=== PATIENT | male | born 1940 | race Caucasian/White ===

== ENCOUNTER → 2017-06-28 | Outpatient (CLI) | payer MEDICARE, OTHER ==
[~2017-06-28] MED LIST: ASPI-231 PO; COLC0.6T56 OR; LOSA100T21 PO; PRAV20TA3 PO
== END | disposition home or self-care (01) ==
LOC: LAB 10:30
PROVIDERS: ATTEND Podiatrist Foot & Ankle Surgery
DX: L57.0 Actinic keratosis (principal)

== ENCOUNTER → 2018-07-17 | Day surgery (SDC) | payer MEDICARE, OTHER ==
[2018-07-16 12:09] LABS: Urine Bacteria NONE SEEN /hpf (None Seen); Urine Blood Negative /uL (Negative); Urine Specific Gravity 1.017 (1.001-1.035); Urine WBC 1 /hpf (0 - 3)
[2018-07-16 12:20] LABS: Eosinophils # (auto) 0.1 uL; Hemoglobin 15.6 g/dL (13.5-17.5); Monocytes # (auto) 0.8 uL; White Blood Cell 6.8 10^3/uL (4.4-10.8)
[2018-07-16 12:22] LABS: Basophils # (auto) 0 uL; Basophils % (auto) 0.4 % (0.0-2.0); Eosinophils % (auto) 1.8 % (0.0-7.0); Hematocrit 45.9 % (41.0-53.0); Lymphocytes # (auto) 1.5 uL; Lymphocytes % (auto) 21.4 % (10.0-50.0); Mean Corpuscular Hemoglobin 34.3 pg (28.0-32.0); Mean Corpuscular Volume 100.9 fL (80.0-100.0); Monocytes % (auto) 12.5 % (0.0-12.0); Neutrophils # (auto) 4.3 uL; Neutrophils % (auto) 63.9 % (37.0-80.0); Nucleated Red Blood Cells % 0.1 %; Platelet Count (auto) 253 10^3/uL (140-450); Red Blood Cells 4.55 10^6/uL (4.5-5.90); Red Cell Distribution Width 11.8 % (11.8-14.3)
[2018-07-16 12:28] LABS: INR 0.95 (0.9-1.15); Partial Thromboplastin Time 26.1 sec (23.78-33.04); Prothrombin Time 10.2 sec (9.27-12.13)
[2018-07-16 12:39] LABS: Calcium 9.4 mg/dL (8.5-10.1)
[2018-07-16 12:44] LABS: BUN/Creatinine Ratio 14.6; Bilirubin, Total 0.8 mg/dL (0.2-1.0); Total Protein 7.5 g/dL (6.4-8.2)
[~2018-07-17] VITALS: Ht 177.8 cm; Wt 84.8 kg
[~2018-07-17] MED LIST changes: +ASCO100076 PO; +B-CO1TAB8 PO; +BUPIVACAINE 0.75% INJ 10ML MPV SDV IJ ONE; +CHOL200021 PO; +CLINDAMYCIN 600MG IV 50 ML IV ONE; +COEN150C4 PO; +GLYCOPYRROLATE 0.2 MG/ML 1ML VIAL ONE; +HYDROmorphone HCL 2 MG/ML VL IV PRN; +LIDOCAINE 1% INJ PF 5ML AMP ONE; +LIDOCAINE W/ EPINEPHRINE 1 % INJ 30ML ONE; +METOCLOPRAMIDE HCL 5MG/ml INJ 2ml VIAL ONE; +MIDAZOLAM HCL 1MG/1ML-2 ML VIAL ONE; +NALOXONE HCL 0.4 MG/ML VIAL IV PRN; +OMEG100078 PO; +ONDANSETRON HCL 4 MG/2 ML VIAL IV ONE; +PROPOFOL 10 MG/ML 20 ML IV ONE; +diphenhdrAMINE HCL 50 MG/1 ML VL ONE
[2018-07-17 14:00] VITALS: BP 109/77
== END | disposition home or self-care (01) ==
LOC: SUR 10:02
PROVIDERS: ATTEND Podiatrist Foot & Ankle Surgery
DX: B07.0 Plantar wart (principal); I10 Essential (primary) hypertension; M19.90 Unspecified osteoarthritis, unspecified site; G47.33 Obstructive sleep apnea (adult) (pediatric); K44.9 Diaphragmatic hernia without obstruction or gangrene; K57.30 Diverticulosis of large intestine without perforation or abscess without bleeding; K21.9 Gastro-esophageal reflux disease without esophagitis; Z88.0 Allergy status to penicillin; Z98.890 Other specified postprocedural states; Z79.899 Other long term (current) drug therapy; Z85.46 Personal history of malignant neoplasm of prostate
CPT/HCPCS: 14041; 36415; 80053; 81001; 85025; 85610; 85730; 88305; J1200; J2001; J2250; J2704; J2765; J3490